=== PATIENT | female | born 1980 | race Caucasian/White ===

== ENCOUNTER 2022-09-03 14:44 | Outpatient (CLI) | payer BC, SELFPAY ==
[2022-09-03 15:01] LABS: Influenza Type A POSITIVE (Negative); Influenza Type B Negative (Negative)
== END 2022-09-03 14:45 | disposition home or self-care (01) ==
LOC: LKVREF 14:44
PROVIDERS: PCP Physician Assistant Medical; Visit Provider Nurse Practitioner Family
DX: R50.9 Fever, unspecified (principal); J10.1 Influenza due to other identified influenza virus with other respiratory manifestations
CPT/HCPCS: 87804

== ENCOUNTER 2022-09-17 11:46 | Outpatient (CLI) | payer BC, SELFPAY ==
[2022-09-17 22:07] LABS: Chloride* 104 mmol/L (96-114); Potassium* 4.1 mmol/L (3.6-5.1); Sodium* 140 mmol/L (135-149)
[2022-09-17 22:10] LABS: Blood Urea Nitrogen* 13 mg/dL (5-24); Carbon Dioxide* 30 mmol/L (20-32); Cholesterol* 199 mg/dL (90-199); Creatinine* 0.7 mg/dL (0.5-1.5); Estimated Glomerular Filt Rate 111 ml/min
[2022-09-17 22:11] LABS: Calcium* 9.1 mg/dL (8.4-10.6); Glucose* 83 mg/dL (60-115); HDL Cholesterol* 68 mg/dL (>=50); LDL Cholesterol Calculated 117 mg/dL (<100); Triglycerides* 71 mg/dL (40-149)
== END 2022-09-17 11:47 | disposition home or self-care (01) ==
PROVIDERS: PCP Physician Assistant Medical; Visit Provider Physician Assistant Medical
DX: Z00.00 Encounter for general adult medical examination without abnormal findings (principal); Z13.6 Encounter for screening for cardiovascular disorders
CPT/HCPCS: 80048; 80061

== ENCOUNTER 2023-11-11 11:02 | Outpatient (CLI) | payer OTHER, SELFPAY | END 2023-11-11 11:03 | disposition home or self-care (01) | LOC: NFLDREF 11-15 08:24 | PROVIDERS: PCP Physician Assistant Medical; Referring Provider Physician Assistant Medical; Visit Provider Physician Assistant Medical | DX: Z13.21 Encounter for screening for nutritional disorder (principal); Z13.220 Encounter for screening for lipoid disorders; Z13.228 Encounter for screening for other metabolic disorders | CPT/HCPCS: 80053; 80061; 82306; 84443 ==

== ENCOUNTER 2024-02-17 13:01 | Outpatient (CLI) | payer OTHER, SELFPAY ==
--- NOTE | 2024-02-17 13:00 | CT_ITS ---
Patient: DANA ALEMAN Facility:?[facility] Patient ID:?[id number] Site Patient ID:?[id number]. Site :?1980 Study:?CT-Chest WITHOUT-02/17/2024 1:21:56 PM Ordering Physician:?DR. RASCON Final Report: INDICATION: Follow-up pulmonary nodule TECHNIQUE: CT chest without contrast. COMPARISON: 03/05/[address], 09/15/[address] FINDINGS: Lungs and pleura: Stable 7 x 4 mm nodule in the right lung apex. 4 mm nodule right lower lobe image 78 and tiny right minor fissure nodule are also unchanged. No new nodules. Heart and vasculature: Heart size is normal. Thoracic aorta and pulmonary artery are normal in caliber. Lymph nodes/mediastinum: No mediastinal, hilar, or axillary adenopathy. Thyroid gland is normal. Chest wall: No masses. Upper abdomen: Normal. Bones: Unremarkable for age. IMPRESSION: Small right lung pulmonary nodules are unchanged for 2-1/2 years and should be benign. Please note that all CT scans at this facility use dose modulation, iterative reconstruction, and/or weight-based dosing when appropriate to reduce radiation dose to as low as reasonably achievable. Dictated by Noe Garcias MD @ 02/18/2024 10:19:02 AM Signed by:?Noe Garcias MD @02/18/2024 10:19:02 AM (Electronic Signature)
--- NOTE | 2024-02-17 13:40 | MM_ITS ---
Patient: DANA ALEMAN Facility:?[facility] Patient ID:?[id number] Site Patient ID:?[id number]. Site :?1980 Study:?XRay-Breast Bilateral 3D W/CAD-02/17/2024 2:12:31 PM Ordering Physician:?Leonora Echevarria Final Report: BILATERAL SCREENING MAMMOGRAM WITH COMPUTER-AIDED DETECTION AND TOMOSYNTHESIS TECHNIQUE: CC and MLO views were obtained. These mammographic images have been obtained using full-field digital technique. These mammographic images were interpreted with the benefit of computer-aided detection. Breast tomosynthesis was used in this interpretation. COMPARISON FILM: 11/27/21. FINDINGS: There are scattered areas of fibroglandular density. IMPRESSION: There is no radiographic evidence for malignancy. ASSESSMENT: BI-RADS Category 1: Negative RECOMMENDATION: Routine screening mammogram in 1 year. A lay language report of this examination will be provided to the patient. MARK PANTOJA M.D. Diagnostic Radiologist [email or web address] KENYA/[email or web address] D& Transcribed: 2:[address]/Dictated by: Mark Pantoja MD @ 02/18/2024 12:29:00 PM Signed by:?Mark Pantoja MD @02/18/2024 9:34:33 PM (Electronic Signature)
== END 2024-02-17 13:02 | disposition home or self-care (01) ==
LOC: CT 13:02
PROVIDERS: PCP Physician Assistant Medical; Visit Provider Physician Assistant Medical
DX: R91.8 Other nonspecific abnormal finding of lung field (principal); Z12.31 Encounter for screening mammogram for malignant neoplasm of breast
CPT/HCPCS: 71250; 77063; 77067

== ENCOUNTER 2024-03-09 09:13 | Outpatient (CLI) | payer OTHER, SELFPAY | END 2024-03-09 09:14 | disposition home or self-care (01) | PROVIDERS: PCP Physician Assistant Medical; Visit Provider Physician Assistant Medical | DX: R63.5 Abnormal weight gain (principal); E87.6 Hypokalemia | CPT/HCPCS: 84443 ==

== ENCOUNTER 2025-10-11 13:38 | Outpatient (CLI) | payer OTHER, SELFPAY | END 2025-10-11 13:39 | disposition home or self-care (01) | PROVIDERS: PCP Physician Assistant Medical; Visit Provider Physician Assistant Medical | DX: N64.52 Nipple discharge (principal); Z76.89 Persons encountering health services in other specified circumstances | CPT/HCPCS: 82306; 84146; 84443 ==